=== PATIENT | female | born 1980 | race Caucasian/White ===

== ENCOUNTER 2024-06-09 10:04 | Day surgery (SDC) | payer MEDICAID ==
[~2024-06-09] VITALS: Ht 165.1 cm; Wt 83.0 kg
[2024-06-09 10:39] LABS: HCG,QUAL RESULT NEGATIVE (NEGATIVE)
[2024-06-09] MEDS ORDERED: fentaNYL CITRATE/PF 100 MCG/2 ML AMP ONE (11:26)
[2024-06-09] MEDS ORDERED: MIDAZOLAM HCL 2 MG/2 ML VIAL (VERSED) ONE (11:27)
[2024-06-09] MEDS ORDERED: PROPOFOL 200MG/ 20ML VIAL (DIPRIVAN) IV ONE (11:40)
[2024-06-09] MEDS ORDERED: METOCLOPRAMIDE HCL 10 MG/2 ML VIAL IVP PRN (12:30)
[2024-06-09] MEDS ORDERED: LABETALOL 100 MG/ 20ML VIAL IVP PRN (12:30)
[2024-06-09] MEDS ORDERED: ePHEDrine sulfate 50 MG/ML VIAL IVP PRN (12:30)
[2024-06-09] MEDS ORDERED: HYDROmorphone 1 MG/ML INJ. CARTRIDGE IVP PRN ×2 (12:30)
[2024-06-09] MEDS ORDERED: ONDANSETRON HCL 4 MG/2 ML VIAL IVP PRN (12:30)
[2024-06-09] MEDS ORDERED: HYDROmorphone 1 MG/ML INJ. CARTRIDGE ONE (12:49)
[2024-06-09] MEDS: HYDROmorphone 1 MG/ML INJ. CARTRIDGE IVP PRN (12:50)
[2024-06-09 13:28] VITALS: O2SAT 97
[2024-06-09] MEDS: HYDROmorphone 1 MG/ML INJ. CARTRIDGE ONE ×2 (14:40→15:36)
[2024-06-09 16:31] VITALS: BP_SYST 118; PULSE 73; RESP 17
== END 2024-06-09 16:17 | disposition home or self-care (01) ==
LOC: SDS 10:04 → SMU 10:08 → SDS 16:17
PROVIDERS: ATTEND Obstetrics & Gynecology
DX: N92.0 Excessive and frequent menstruation with regular cycle (principal); E11.9 Type 2 diabetes mellitus without complications; Z98.891 History of uterine scar from previous surgery; Z90.89 Acquired absence of other organs; Z79.84 Long term (current) use of oral hypoglycemic drugs; Z79.899 Other long term (current) drug therapy
CPT/HCPCS: 87081; 58563; 84703; 82948; J3465; J2704; J0330; J3010; J1170; J7120; J7030